=== PATIENT | female | born 1960 | race Caucasian/White ===

== ENCOUNTER 2016-11-21 21:42 | Emergency (ER) | payer OTHER ==
[~2016-11-21] VITALS: Ht 162.6 cm; Wt 71.2 kg
[~2016-11-21 21:42] MED LIST: ATEN25TA PO; ATOR-22 PO; LISI-725 PO; METF500T PO; NTRGSL/4 SL; OXYC1TAB3 PO; PRLSR20 PO
[2016-11-21 21:53] VITALS: TEMP 36.7; Ht 162.6 cm; Wt 71.2 kg
[2016-11-21] MEDS ORDERED: PERCOCET HOME PACK PO ONE (23:00)
[2016-11-21] MEDS ORDERED: FLEXERIL HOME PACK 10 MG VIAL PO ONE (23:00)
[2016-11-21] MEDS ORDERED: CYCL10TA6 PO (23:16)
[2016-11-21] MEDS ORDERED: OXYC-57 PO (23:16)
--- NOTE | 2016-11-21 23:18 | EMERGENCY ROOM VISIT NOTE ---
ED Visit Note First contact with patient: 22:43 CHIEF COMPLAINT: Low back pain HISTORY OF PRESENT ILLNESS: This 56-year-old female patient presents to the emergency department ambulatory complaining of pain in the low back which began this morning. The patient states that she has had issues with her low back in the past. She reports that a few months ago, she pulled the back and her symptoms today feel similar. The pain was gradual in onset, is now constant and worse with movement. The patient notes the pain as sharp and an 8/10. She states the pain radiates from the low back down the right leg. The patient has taken no medication at home for relief of the pain. The patient denies any loss of control of their bowel or bladder functions. There has been no leg numbness or weakness, and no change in sensation. No nausea or vomiting or abdominal pain. No chest pain or shortness of breath. No dysuria or increased urinary frequency. REVIEW OF SYSTEMS: A review of systems was performed with positives and pertinent negatives listed in the history of present illness. All other systems were reviewed and are negative. ALLERGIES: No known drug allergies MEDICATIONS: See med list PMH: Hypertension, hyperlipidemia, diabetes SOCIAL HISTORY: The patient lives locally with family. Nonsmoker. PHYSICAL EXAM: VITALS: Vitals are noted on the nurse's note and reviewed by myself. Vital signs stable. GENERAL: This is a 56-year-old female, in no acute distress, nondiaphoretic, well-developed well-nourished. SKIN: The skin was without rashes, erythema, edema, or bruising. Capillary refill less than 2 seconds. NECK: Supple without nuchal rigidity. No cervical spine tenderness. No paraspinous muscle tenderness. HEART: Regular rate and rhythm without murmurs gallops or rubs. LUNGS: Clear to auscultation bilaterally without wheezes, rales or rhonchi. ABDOMEN: Positive bowel sounds x 4. Normal tympanic percussion. Soft, nontender, without masses or organomegaly. Garza sign negative. MUSCULOSKELETAL: No muscle atrophy, erythema, or edema noted of the back. There is no tenderness over the lumbar spinous processes. There is mild tenderness over the right lumbar paraspinous muscles. There is no tenderness over the thoracic spine or paraspinous muscles. There are no muscle spasms present. The patient has full range of motion of the spine. Negative straight leg raise test. NEURO: Patient was alert and oriented to person place and time. Normal sensation to light and sharp touch. Deep tendon reflexes 2+ in the lower extremities. Dorsalis pedis pulse 2+ bilaterally. Strength 5/5 and equal in the bilateral lower extremities. EMERGENCY DEPARTMENT COURSE: The patient was evaluated as above. Previous records were reviewed. The patient states that she did well with a short course of pain medication and Flexeril last time she had similar pain. Review of the [place] prescription drug monitoring program shows that the patient has not received any narcotic prescription since then. I do think it is reasonable to provide her with a short course of Hestand and Flexeril, but the patient was informed that she will need to follow-up with her primary care provider for further evaluation of her symptoms. She verbalized understanding of my assessment and treatment plan and was discharged home in good condition. DIAGNOSIS: Low back pain Problem List Medical Problems: (1) Clostridium difficile colitis Status: Resolved (2) DM2 (diabetes mellitus, type 2) Status: Chronic (3) GERD (gastroesophageal reflux disease) Status: Chronic (4) Hypertension Status: Chronic (5) vagina repair Status: Chronic Surgical Problems: (1) H/O colonoscopy Status: Chronic (2) History of appendectomy Status: Chronic (3) Hx of appendectomy Status: Resolved Current/Historical Medications Scheduled Atenolol (Tenormin), 25 MG PO QAM Atorvastatin (Lipitor), 20 MG PO DAILY Cyclobenzaprine Hcl (Flexeril), 10 MG PO TID Lisinopril (Zestril), 20 MG PO QAM Metformin Hcl (Glucophage), 500 MG PO DAILY Omeprazole (Prilosec), 20 MG PO DAILY Scheduled PRN Nitroglycerin (Nitrostat), 0.4 MG SL UD PRN Oxycodone/Acetaminophen 5MG/325MG (Percocet 5MG/325MG), 1-2 TABS PO Q4H PRN for Pain Allergies Coded Allergies: No Known Allergies (Unverified , 08/15/16) Vital Signs Date Time Temp Pulse Resp B/P Pulse Ox O2 Delivery O2 Flow Rate FiO2 11/21/16 21:53 36.7 74 18 120/80 99 Room Air Departure Information Impression Primary Impression: Lumbar radiculopathy Dispostion Home / Self-Care Condition GOOD Prescriptions Cyclobenzaprine Hcl (FLEXERIL) 10 Mg Tab 10 MG PO TID for 5 Days, #15 TAB Prov: Jenna Adan PA-C 11/21/16 Oxycodone/Acetaminophen 5MG/325MG (PERCOCET 5MG/325MG) Tab 1-2 TABS PO Q4H Y for Pain, #15 TAB For Initial Treatment Prov: Jenna Adan PA-C 11/21/16 Referrals Rachele Wheeler DO (PCP) Patient Instructions My [facility] Additional Instructions You have been treated in the Emergency Department for Back Pain. You have been prescribed Percocet to be used for pain control. This is a narcotic medication. You cannot drive or consume alcohol while on this medicine. This medicine should only be used for pain that cannot be controlled with [id number] pain medicines. You have been prescribed Flexeril (cyclobenzaprine) 1-2 tabs orally, three times per day. Do NOT exceed 30 mg (6 tabs) per day. Take your first dose at bedtime as it can make you drowsy. Always take all medications as prescribed. For pain control, you can use the following [id number]-[id number] medicines (if >12 yo): - Regular strength (325mg/tab) Tylenol (acetaminophen) 2 tabs every 4-6 hours as needed. Do not exceed 12 tablets in a 24 hour period. Avoid taking more than 4 grams (4000 mg) of Tylenol per day. This includes any other sources of acetaminophen you may take on a regular basis. - Regular strength (200 mg/tab) Advil (ibuprofen) 1-2 tabs every 4-6 hours as needed. Do not exceed a dose of 3200 mg per day. If this is an acute injury, ice can be applied to the area of pain for the first 3 days to help decrease pain and inflammation. After the first 3 days, a heating pad can be used over the area for continued soothing relief. You should schedule a follow-up appointment in 2-3 days with your Primary Care Provider for further evaluation and treatment of your back pain. Return to the Emergency Department if your current symptoms worsen despite treatment course outlined above, or if you develop any of the following symptoms : intractable pain despite aforementioned treatment course, loss of control of your bowel or bladder, numbness or tingling in your groin, or development of a fever.
[2016-11-21 23:33] VITALS: BP 123/77; PULSE 82; O2SAT 98
[2017-01-30] MEDS ORDERED: TRAM-10 PO (11:38)
[2017-01-30] MEDS ORDERED: ATEN-173 PO (11:38)
[2017-01-30] MEDS ORDERED: ATOR10TA88 PO (11:38)
[2017-01-30] MEDS ORDERED: CETI10TA84 PO (11:38)
[2017-01-30] MEDS ORDERED: LISI-725 PO (11:38)
[2017-01-30] MEDS ORDERED: PRLSR20 PO (11:38)
[2017-01-30] MEDS ORDERED: METF1000 PO (11:38)
== END 2016-11-21 23:35 | disposition home or self-care (01) ==
LOC: C.EDB 21:43 → C.EDD 23:35
DX: M54.16 Radiculopathy, lumbar region (principal); M54.5 Low back pain; I10 Essential (primary) hypertension; E78.5 Hyperlipidemia, unspecified; E11.9 Type 2 diabetes mellitus without complications; K21.9 Gastro-esophageal reflux disease without esophagitis; Z86.19 Personal history of other infectious and parasitic diseases; Z98.890 Other specified postprocedural states; Z79.84 Long term (current) use of oral hypoglycemic drugs; Z79.899 Other long term (current) drug therapy

== ENCOUNTER → 2017-02-07 | Outpatient (CLI) | payer OTHER ==
[~2017-02-07] MED LIST changes: +ATEN-173 PO; -ATEN25TA PO; -ATOR-22 PO; +ATOR10TA82 PO; +CETI10TA84 PO; +METF1000 PO; -METF500T PO; -NTRGSL/4 SL; -OXYC1TAB3 PO; +TRAM-10 PO
== END | disposition home or self-care (01) ==
LOC: C.LAB 00:04
DX: Z02.83 Encounter for blood-alcohol and blood-drug test (principal)

== ENCOUNTER → 2017-02-10 | Day surgery (SDC) | payer OTHER ==
[2017-01-30 11:38] VITALS: Ht 162.6 cm; Wt 65.9 kg
--- NOTE | 2017-02-09 14:59 | DIAGNOSTIC IMAGING REPORT ---
CHEST 2 VIEWS ROUTINE HISTORY: LEFT FOOT HALLUX RIGIDUS,PRE OP COMPARISON: Chest 02/09/2016. FINDINGS: The lungs are clear. Cardiac silhouette is normal in size. No pleural effusions. No pneumothorax. IMPRESSION: No acute process. Electronically signed by: Sigifredo Swartz M.D. 02/09/2017 2:58 PM Dictated Date/Time: 02/09/2017 2:56 PM
[~2017-02-10] VITALS: Ht 162.6 cm; Wt 65.9 kg
[~2017-02-10] MED LIST changes: -ATOR10TA82 PO; +ATOR10TA88 PO; +ATROPINE SULFATE 0.1 MG/ML 5ML SYR IV PRN; +BUPIVACAINE 0.5 % 5 MG/1 ML MPF 30ML VIAL ONE; +CEFAZOLIN 1000MG/55 ML D5W IV SCH; +EpHEDrine SULFATE INJ 50 MG/ML AMP IV PRN; +FENTANYL CITRATE INJ 50 MCG/1 ML 2 ML VIAL IV PRN; +FENTANYL CITRATE INJ 50 MCG/1 ML 2 ML VIAL ONE; +HYDROCODONE/ACETAMOPHEN 5/325MG TAB PO PRN; +KETAMINE HCL INJ 50 MG/ML 10 ML VIAL ONE; +LACTATED RINGER'S 1000ML 1,000 ML IV SCH; +LIDOCAINE HCL 1% 20 ML VIAL ONE; +LIDOCAINE HCL 2% 2 ML VIAL (20MG/ML) ONE; +METOCLOPRAMIDE HCL INJ 5 MG/ML 2 ML VIAL IV PRN; +MIDAZOLAM HCL 1 MG/ML 2ML VIAL ONE; +ONDANSETRON INJ 2 MG/ML 2 ML VIAL IV PRN; +OXYCODONE/ACETAMINOPHEN 5-325 TAB PO PRN; +PROPOFOL IV EMULSION 10 MG/ML 20 ML VIAL IV ONE; +SODIUM CHLORIDE 0.9% 1000ML 1,000 ML IV SCH
[2017-02-10 09:43] LABS: BASO % 0.5 %; BASO ABS # 0.03 K/uL (0-0.2); EOS % 2.7 %; HEMATOCRIT 37.8 % (37-47); LYMPH % 16.5 %; LYMPH ABS # 1.08 K/uL (1.2-3.4); MEAN PLATELET VOLUME 9.5 fL (7.4-10.4); MONO % 10.4 %; NEUT % 69.9 %; PLATELET COUNT 265 K/uL (130-400); RED BLOOD COUNT 4.61 M/uL (4.2-5.4); WHITE BLOOD COUNT 6.56 K/uL (4.8-10.8)
[2017-02-10 10:06] LABS: COMPLETE YES; MEAN CORPUSCULAR HGB CONC 31.7 g/dl (32-36)
--- NOTE | 2017-02-10 10:21 | History & Physical Bridge - SC ---
H&P Re-Evaluation Bridge Note: I have examined the patient, reviewed the History & Physical and in the interval since the performance of the History & Physical I have noted the following changes of clinical significance: No changes noted left foot arthroplasty procedure for the correction of left foot arthritis/bunion/hallux rigidus
--- NOTE | 2017-02-10 11:24 | Discharge Instructions-SurgCtr ---
Discharge Instructions Date of Service Feb 10, 2017. Visit Reason for Visit: Left Foot Hallux Rigidus Discharge Discharge Diagnosis / Problem: left foot hallux rigidus/bunion/arthritis Discharge Goals Goal(s): Decrease discomfort, Improve function Medications Stopped Medications Name(s): metformin stopped 3 days ago Restart Stopped Medication(s): all Activity Recommendations Activity Limitations: as noted below Lifting Limitations: no more than 5 pounds Exercise/Sports Limitations: none Shower/Bathe: keep incision dry Driving or Machine Use: when allowed Weightbearing Status: Right partial Anesthesia . Post Anesthesia Instructions: If you have had General Anesthesia or IV Sedation: * Do not drive today. * Resume driving when surgeon permits. * Do not make important decisions or sign legal documents today. * Call surgeon for: 1. Temperature elevations greater than 101 degrees F. 2. Uncontrollable pain. 3. Excessive bleeding. 4. Persistent nausea and vomiting. 5. Medication intolerance (nausea, vomiting or rash). * For nausea and vomiting use only clear liquids such as: tea, soda, bouillon until nausea subsides, then gradually increase diet as tolerated. * If you have any concerns or questions, call your surgeon's office. If physician is unavailable and it is an emergency, call 911 or go to the nearest emergency room. . Diet Recommendations Home Diet: no limitations Procedures Procedures Performed: Left Foot Surgical Correction Bunion Deformity By RemovingThe Bump And Realigning The Joint With Fixation Pending Studies Studies pending at discharge: no Medical Emergencies . Who to Call and When: Medical Emergencies: If at any time you feel your situation is an emergency, please call 911 immediately. . Non-Emergent Contact Non-Emergency issues call your: Primary Care Provider Call Non-Emergent contact if: temperature is above 101.5 . . "Provider Documentation" section prepared by Komal Soria. . [place] Drug Monitoring Program Search Results: patient reviewed within database, no issues identified
--- NOTE | 2017-02-10 11:25 | [facility] Post Operative Brief Note ---
Immediate Operative Summary Operative Date Feb 10, 2017. Pre-Operative Diagnosis Left foot hallux rigidus Post-Operative Diagnosis same Procedure(s) Performed Left Foot Surgical Correction Bunion Deformity By RemovingThe Bump And Realigning The Joint With Fixation Surgeon Dr Simon Hot Dip Galvanizer Surgeon(s) 0 Estimated Blood Loss 1 ML Findings bone left foot Specimens A. Bone from left foot Drains none Anesthesia local iv sedation Complication(s) None Disposition Recovery Room / PACU
[2017-02-10 11:28] VITALS: TEMP 36.5
--- NOTE | 2017-02-10 11:49 | Anesthesia Progress Nt - [facility] ---
Anesthesia Post Op Note Date & Time Feb 10, 2017 at 11:49 Vital Signs Pain Intensity: 0 Vital Signs Past 12 Hours Date Time Temp Pulse Resp B/P (MAP) Pulse Ox O2 Delivery O2 Flow Rate FiO2 02/10/17 11:28 36.5 68 16 126/80 (95) 98 Room Air 02/10/17 09:23 36.4 66 18 152/93 (112) 99 Room Air Notes Mental Status: alert / awake / arousable, participated in evaluation Pt Amnestic to Procedure: Yes Nausea / Vomiting: adequately controlled Pain: adequately controlled Airway Patency, RR, SpO2: stable & adequate BP & HR: stable & adequate Hydration State: stable & adequate Anesthetic Complications: no major complications apparent
[2017-02-10 11:58] VITALS: BP 154/78; PULSE 68; O2SAT 99
--- NOTE | 2017-02-10 14:26 | OPERATIVE REPORT ---
DATE OF OPERATION: 02/10/2017 PREOPERATIVE DIAGNOSIS: Painful left foot hallux rigidus bunion or arthritis. POSTOPERATIVE DIAGNOSIS: Same. PROCEDURES: Left foot arthroplasty, resection of the base of the proximal phalanx or Enamorado arthroplasty. SURGEON: Komal Simon DPM. BLOOD LOSS: About 1 mL. ANESTHESIA: Local IV sedation. HEMOSTASIS: Pneumatic ankle tourniquet at 250 mmHg. OPERATION AND FINDINGS: PROCEDURE: The patient was brought to the operating room and placed in the supine position. The left lower extremity was prepped and draped in the usual sterile manner. A 1:1 mixture of 1% lidocaine plain and 0.5% Marcaine was utilized to anesthetize the left foot in the area of the left first metatarsophalangeal joint. At this point, a timeout was taken, anesthesia was induced and the procedure began. A dorsal linear incision was made just medial to the long extensor tendon. Dissection was carried through the skin and subcutaneous tissues to the level of the joint capsule. The joint capsule was then transcribed in line with the original incision and dissected both medially and laterally to expose the joint. Significant arthritis was present at the base of the proximal phalanx and head of the first metatarsal with degeneration and hypertrophied bone noted medially and laterally and dorsally. At this time, the head of the first metatarsal was freed from all soft tissue. The medial aspect of the first metatarsal head had all redundant bone resected utilizing the sagittal saw. This was also done to resect redundant bone dorsally as well as laterally. Next, the base of the proximal phalanx was released from all soft tissue attachments and resected utilizing a sagittal saw and sent to pathology for permanent specimen. The area was flushed with copious amounts of normal saline. The extensor hallucis longus tendon was lengthened utilizing Z lengthening technique and then reattached utilizing 2-0 Vicryl and simple interrupted sutures. The toe was taken through range of motion and found to be improved. The position of the toe was improved as well although there was very little abducted motion of the toe noted. Next, the area was flushed with copious amounts of normal saline. The capsular tissues were closed with 3-0 Vicryl. The subcutaneous tissues were closed with 3-0 Vicryl and the skin was closed with 3-0 nylon in a combination of horizontal mattress and simple interrupted sutures. Compressive and corrective dressings were applied to the left lower extremity. The patient was taken to recovery room with all vital signs stable and intact with good hemodynamic response noted to the left hallux and the left foot. The patient was made aware of all risks and benefits and signed consent for the procedure. Injections, shoe gear modifications and conservative treatment failed for this patient and that is why she opted to have it surgically corrected. I attest to the content of the Intraoperative Record and any orders documented therein. Any exceptions are noted below. RON
== END | disposition home or self-care (01) ==
LOC: X.SURG 08:54
PROVIDERS: ATTEND Podiatrist
DX: M20.22 Hallux rigidus, left foot (principal); R73.03 Prediabetes; K21.9 Gastro-esophageal reflux disease without esophagitis; I49.3 Ventricular premature depolarization; E78.5 Hyperlipidemia, unspecified; I10 Essential (primary) hypertension; Z79.84 Long term (current) use of oral hypoglycemic drugs; Z90.89 Acquired absence of other organs; Z82.49 Family history of ischemic heart disease and other diseases of the circulatory system